=== PATIENT | male | born 1995 | race American Indian/Alaskan Native ===

== ENCOUNTER 2021-09-05 19:40 | Emergency (ER) | payer OTHER ==
--- NOTE | 2021-09-05 22:30 | Emergency Department Report ---
ED General Adult HPI - General Chief complaint: Extremity Injury, Lower Stated complaint: FOOT NUMBNESS/BILATERAL Time Seen by Provider: 09/05/21 20:34 Source: patient Mode of arrival: Ambulatory Limitations: No Limitations - History of Present Illness Initial comments: 26-year-old male presents emerge department complaining of bilateral numbness tingling to the heels of unknown etiology. Ports no swelling to the feet, no redness, no pain no tenderness no trauma -: Gradual, week(s) (1) Radiation: non-radiation Quality: dull Consistency: constant Improves with: none Worsens with: none Associated Symptoms: denies: chest pain, cough, diaphoresis, loss of appetite, malaise, nausea/vomiting, shortness of breath, syncope, weakness - Related Data Previous Rx's Medication Instructions Recorded Last Taken Type Ketorolac [Toradol] 10 mg PO Q6H PRN #14 tablet 09/05/21 Unknown Rx Allergies Allergy/AdvReac Type Severity Reaction Status Date / Time No Known Allergies Allergy Unverified 09/05/21 22:39 ED Review of Systems ROS: Stated complaint: FOOT NUMBNESS/BILATERAL Other details as noted in HPI Comment: All other systems reviewed and negative ED Past Medical Hx - Past Medical History Previous Medical History?: No - Surgical History Past Surgical History?: No - Medications Home Medications: Home Medications Medication Instructions Recorded Confirmed Last Taken Type Ketorolac [Toradol] 10 mg PO Q6H PRN #14 tablet 09/05/21 Unknown Rx ED Physical Exam - General Limitations: No Limitations General appearance: alert, in no apparent distress - Head Head exam: Present: atraumatic, normocephalic - Eye Eye exam: Present: normal appearance, PERRL, EOMI Pupils: Present: normal accommodation - ENT ENT exam: Present: normal exam, mucous membranes moist, TM's normal bilaterally - Neck Neck exam: Present: normal inspection - Respiratory Respiratory exam: Present: normal lung sounds bilaterally. Absent: respiratory distress - Cardiovascular Cardiovascular Exam: Present: regular rate, normal rhythm. Absent: systolic murmur, diastolic murmur, rubs, gallop - GI/Abdominal GI/Abdominal exam: Present: soft, normal bowel sounds - Rectal Rectal exam: Present: deferred - Extremities Exam Extremities exam: Present: normal inspection, normal capillary refill. Absent: tenderness, pedal edema, joint swelling, calf tenderness - Back Exam Back exam: Present: normal inspection. Absent: CVA tenderness (R), CVA tenderness (L) - Neurological Exam Neurological exam: Present: alert, oriented X3, CN II-XII intact, normal gait, reflexes normal - Psychiatric Psychiatric exam: Present: normal affect, normal mood - Skin Skin exam: Present: warm, dry, intact, normal color. Absent: rash ED Course Vital Signs 09/05/21 09/05/21 09/05/21 20:34 20:35 22:42 Temperature 98.3 F Pulse Rate 84 82 82 Respiratory 17 14 Rate Blood Pressure 160/101 Blood Pressure 156/96 [Right] O2 Sat by Pulse 100 100 100 Oximetry Critical care attestation.: If time is entered above; I have spent that time in minutes in the direct care of this critically ill patient, excluding procedure time. ED Disposition Clinical Impression: Neuropathy of both feet Disposition: HOME / SELF CARE / HOMELESS Is pt being admited?: No Does the pt Need Aspirin: No Condition: Stable Instructions: Paresthesia, Tarsal Tunnel Syndrome, Peripheral Neuropathy Prescriptions: Ketorolac [Toradol] 10 mg PO Q6H PRN #14 tablet PRN Reason: Pain Referrals: [facility] [Provider Group] - 3-5 Days COCO SÁNCHEZ MD [Staff Physician] - 3-5 Days MARTINA CUELLAR DPM [Staff Physician] - 3-5 Days
[2021-09-05 22:43] VITALS: BP 156/96
== END 2021-09-05 22:42 | disposition home or self-care (01) ==
LOC: ED 19:40
DX: R20.0 Anesthesia of skin (principal); Z79.899 Other long term (current) drug therapy
CPT/HCPCS: 82962; 99283